=== PATIENT | female | born 1980 | race African-American/Black ===

== ENCOUNTER → 2017-01-12 | Outpatient (CLI) | payer OTHER ==
[2016-04-17 11:59] VITALS: BP 127/66
--- NOTE | 2017-01-12 15:40 | MRI ---
HISTORY: KNEE PAIN. EVALUATE FOR MEDIAL MENISCAL TEAR. EXAM: NON CONTRAST MRI EXAM OF THE RIGHT KNEE. TECHNIQUE: Multisequence and multiplanar T1 and T2 weighted sequences of the right knee were obtained without the administration of IV paramagnetic contrast at 1.5 Mary Lou. COMPARISON: No recent comparisons. FINDINGS: The MR examination demonstrates no appreciable patellofemoral or femorotibial articular car tilage loss nor full-thickness cartilage loss in the weight-bearing sector of the medial or lateral k nee compartments. No high-grade osteochondral defects are seen. There is no MR evidence for osteochon dritis dessicans. There is a low grade strain of the otherwise intact ACL. The PCL is intact. No disp laced medial or lateral meniscal tear is seen. There is a focal meniscocapsular junction sprain, medi ally. There is a low grade MCL strain. There is slight lateral tracking of the patella with a somewha t oblique in shallow femoral trochlea without evidence for recent patellar dislocation. There is prep atellar edema with proximal patellar tendinosis. The IT band and posterior-lateral corner structures are unremarkable. The lateral collateral ligament complex presents no focal abnormalities. The extens or mechanism of the knee is intact. There is a small knee joint effusion without visible loose bodies seen. Examination of the bone marrow demonstrates no evidence of an aggressive bone marrow lesion. T here is no altered bone marrow signal or significant degenerative disease observed. No other region o f abnormal bone marrow signal is seen to suggest an acute fracture, bone marrow contusion, or aggress veronica marrow lesion. No concerning soft tissue masses are seen. No other bony or soft tissue abnormalit ies are seen. No susceptibility artifact is seen to suggest a foreign body. IMPRESSION: 1. Moderate sized knee joint effusion without meniscal derangement/tear seen. 2. Low-grade strains of both the ACL and MCL without tears of these structures. 3. Focal medial meniscocapsular junction sprain (along the posterior joint line). 4. Moderate lateral tracking of the patella with a somewhat shallow and oblique femoral trochlea with out evidence for a patellar dislocation. Please correlate. 5. Prepatellar edema. Proximal patellar tendinosis. Hoffa's fat pad edema. 6. T1 intense structures posterior to the posterior horn of the medial meniscus and PCL on images 25 of series 801 and on image number 26 of series 801 (respectively) probably reflect large locules of i ntra-articular fat in these anatomic locations. This MRI finding would need correlation with correlat ion with plain film radiographs, however, to exclude the possibility of ossified loose bodies in thes e locations. Reported By:
== END | disposition home or self-care (01) ==
LOC: RAD 13:16
PROVIDERS: ATTEND Specialist
DX: M25.462 Effusion, left knee (principal); S43.52XA Sprain of left acromioclavicular joint, initial encounter; X58.XXXA Exposure to other specified factors, initial encounter; S83.412A Sprain of medial collateral ligament of left knee, initial encounter; S83.095A Other dislocation of left patella, initial encounter; R60.0 Localized edema; M76.52 Patellar tendinitis, left knee
CPT/HCPCS: 73721

== ENCOUNTER → 2017-01-19 | Day surgery (SDC) | payer OTHER ==
[~2017-01-19] MED LIST: KENALOG INJ 40 MG IM ONE; MARCAINE 0.25% INJ ONE
--- NOTE | 2017-01-19 13:18 | DR.UPDATE ---
H&P Update History and Physical Update: History and Physical reviewed and patient examined. Changes noted: NO Yes with the following:Agree with Dr Mckinney H&P. will proceed with interlaminar jerry L3-4
[2017-01-19] MEDS: XYLOCAINE 1 % (PLAIN) ONE ×2 (13:24→13:42)
[2017-01-19 13:58] VITALS: BP 120/71
== END ==
LOC: SURG1 12:16
PROVIDERS: ATTEND Specialist
PROC: 3E0R3BZ Introduction of Anesthetic Agent into Spinal Canal, Percutaneous Approach (ICD-10-PCS; 2017-01-19)
PROC: B01BZZZ Fluoroscopy of Spinal Cord (ICD-10-PCS; 2017-01-19)
PROC: 3E0R33Z Introduction of Anti-inflammatory into Spinal Canal, Percutaneous Approach (ICD-10-PCS; principal; 2017-01-19 12:30)
DX: M51.36 Other intervertebral disc degeneration, lumbar region (principal)
CPT/HCPCS: 62323; 76000; S0020; J2001; J3301

== ENCOUNTER → 2017-09-08 | Outpatient (CLI) | payer OTHER ==
[2017-01-19 13:58] VITALS: BP 120/71
--- NOTE | 2017-09-08 16:07 | MRI ---
MR right knee without contrast Indication: Patellar maltracking and right knee pain. Comparison: MR right knee from 01/12/2017 Technique: Multiplanar multi sequence imaging through the right knee without contrast Findings: Bone marrow signal is normal. Neurovascular structures are normal. The ACL and PCL are norm al. The MCL and lateral collateral ligamentous complex is normal. Medial and lateral menisci are norm al. There is small effusion and synovitis. Extensor mechanism is intact with minimal quadriceps tendinosi s. Femorotibial cartilage is grossly intact with minimal chondromalacia over the medial femorotibial joint. There is edema in the superior lateral Hoffa's fat, see sagittal image 9 and axial image 15. L ateral patellar facet and medial patellar ridge chondromalacia noted. Trochlear groove appears relati vely shallow. Tibial tuberosity-trochlear groove distance measures 2.2 cm on axial image 19 Impression: 1. 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 2. Small effusion and synovitis. Minimal quadriceps tendinosis. Otherwise no other significant abnorm ality seen. Reported By:
== END | disposition home or self-care (01) | DRG 563 ==
LOC: RAD 12:56
PROVIDERS: ATTEND Orthopaedic Surgery
DX: M22.8X1 Other disorders of patella, right knee (principal); M25.461 Effusion, right knee; M65.88 Other synovitis and tenosynovitis, other site; M76.51 Patellar tendinitis, right knee
CPT/HCPCS: 73721

== ENCOUNTER 2017-09-09 11:00 | Day surgery (SDC) | payer OTHER ==
[2017-09-09] MEDS ORDERED: KENALOG INJ 40 MG IM ONE (11:25)
[2017-09-09] MEDS ORDERED: MARCAINE 0.25% INJ ONE (11:25)
--- NOTE | 2017-09-09 11:31 | DR.UPDATE ---
H&P Update History and Physical Update: History and Physical reviewed and patient examined. Changes noted: NO Yes with the following:Agree with H&P from Dr Reed. will proceed with L3-4 jerry
[2017-09-09 12:04] VITALS: BP 143/76
== END 2017-09-09 12:00 | disposition home or self-care (01) | DRG 552 ==
LOC: SURG1 11:00
PROVIDERS: ATTEND Orthopaedic Surgery
PROC: 3E0R3BZ Introduction of Anesthetic Agent into Spinal Canal, Percutaneous Approach (ICD-10-PCS; 2017-09-09)
PROC: 3E0R33Z Introduction of Anti-inflammatory into Spinal Canal, Percutaneous Approach (ICD-10-PCS; principal; 2017-09-09 13:00)
DX: M51.36 Other intervertebral disc degeneration, lumbar region (principal)
CPT/HCPCS: 62323; 76000; A4222; S0020; J3301